=== PATIENT | female | born 2000 | race American Indian/Alaskan Native ===

== ENCOUNTER 2019-06-21 23:17 | Emergency (ER) | payer SELFPAY ==
[2019-06-21] MEDS ORDERED: ACETAMINOPHEN 500 MG TAB PO ONE (23:48)
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
[2019-06-21 23:58] VITALS: BP 119/85
== END 2019-06-22 00:25 | disposition home or self-care (01) ==
LOC: ED 23:17
DX: S56.912A Strain of unspecified muscles, fascia and tendons at forearm level, left arm, initial encounter (principal); Z79.899 Other long term (current) drug therapy; V49.49XA Driver injured in collision with other motor vehicles in traffic accident, initial encounter; Y93.89 Activity, other specified; Y92.488 Other paved roadways as the place of occurrence of the external cause; Y99.8 Other external cause status
CPT/HCPCS: 99282